=== PATIENT | male | born 1980 | race Two or more races ===

== ENCOUNTER 2025-04-22 11:42 | Emergency (ER) | payer BC ==
[~2025-04-22] VITALS: Ht 165.1 cm; Wt 145.0 kg
[2025-04-22 11:45] VITALS: BP 107/81; PULSE 87; RESP 18; TEMP 97.7; O2SAT 99
--- NOTE | 2025-04-22 12:06 | Physician Documentation ---
HPI ~ General Chief Complaint: Medication Refill Stated Complaint: MED CLEARENCE Time Seen by MD: 11:48 History of Present Illness HPI Comments This is a 45-year-old otherwise well male who presents requesting a medication refill of his escitalopram as he has recently moved to the area and does not have a primary care provider to refill the medication. Patient reports he is wo rking on establishing with a primary care locally. Patient reports no other acute symptoms or concerns. Medication Reconciliation Allergies: Coded Allergies: No Known Allergies (Unverified , 04/22/25) Scheduled Escitalopram Oxalate (Escitalopram Oxalate), 1 TAB PO DAILY Past Medical History Past Medical History: Anxiety Review of Systems ROS Med refill as stated above in the HPI, otherwise all systems are reviewed and negative. Physical Exam Physical Exam Vital Signs: Temperature: 97.7, Source: Temporal, Heart Rate: 87, Respiratory Rate: 18, BP: 107/81, Pulse Oximetry: 99, Weight: 145.000 Oxygen Flow Rate: 0 Physical Exam VITALS: Reviewed and as above. GENERAL: Alert, nontoxic appearing, no apparent distress. RESPIRATORY: No increased work of breathing, no respiratory distress, speaking in full clear sentences Progress Results/Orders Results/Orders Vital Signs 04/22/25 11:45 Temp 97.7 Pulse 87 Resp 18 B/P (MAP) 107/81 Pulse Ox 99 O2 Flow Rate 0 Medical Decision Making Findings This is a 45-year-old male who presents requesting a medication refill of antianxiety medications, patient reports that he has been stable on this dose of medication for quite some time though recently moved to the area no longer has a primary care provider to manage his anxiety medications patient reports he is working on follow up with the primary care provider. As patient is well- appearing and stable on current dose of antianxiety medications he will be obtained at this dose in the prescription refilled. Patient is otherwise well- appearing and appropriate for outpatient follow up. Differential Dx:Considerations: Include: Adverse circumstances, Economic, Psychosocial, Medical services unavail., Medication refill Departure Disposition: HOME / SELF CARE / HOMELESS Impression: Primary Impression: Medication refill Additional Impression: History of anxiety Condition: Improved Discharge Instructions: Medicine Refill at the Emergency Department Additional Instructions: Please establish with a primary care provider locally, please return to the emergency department for any new or worsening concerning symptoms. Referrals: NO PRIMARY CARE PROVIDER (PCP) Prescriptions Escitalopram Oxalate (Escitalopram Oxalate) 20 Mg Tablet 1 TAB PO DAILY for 30 Days, #30 TAB 2 Refills Prov: JAC DICKINSON 04/22/25 Education Educated: Patient Educated regarding: diagnosis, treatment, prognosis, need for follow up Signature Scribe Signature: No scribe Attestation: The note accurately reflects work and decisions made by me.HERMAN Saini 04/22/25 21:35 JAC DICKINSON Apr 22, 2025 12:06
[2025-04-22] MEDS ORDERED: ESCI20TA39 PO (12:07)
== END 2025-04-22 12:16 | disposition home or self-care (01) ==
LOC: ER 11:43
DX: F41.9 Anxiety disorder, unspecified (principal); Z76.0 Encounter for issue of repeat prescription; Z79.899 Other long term (current) drug therapy
CPT/HCPCS: 99281